=== PATIENT | female | born 1955 | race Caucasian/White ===

== ENCOUNTER 2021-12-11 03:28 | Inpatient (IN) | payer OTHER ==
[~2021-12-11] VITALS: Ht 158.8 cm; Wt 70.1 kg
[~2021-12-11 03:28] MED LIST: ARAVA20 MG PO; BACLOFEN 20MG T20 MG PO; CLARITIN10 MG PO; COLACE100 MG PO; DESYREL50 MG PO; DOXYCYCLINE MONOHYDRATE PO; HCTZ25 MG PO; IBUPROFEN800 MG PO; LINZESS145 MCG PO; LINZESS72 MCG PO; MOBIC7.5 MG PO; NEURONTIN300 MG PO; PLAQUENIL200 MG PO; PREDNISONE 5MG T5 MG PO; PRINIVIL20 MG PO; VALTREX500 MG PO; VICODIN 10/3251 EACH PO; VITAMIN D31000 UNI1 PO; VOLTAREN **OUT50 MG PO; WELLBUTRIN XL150 MG PO; ZOCOR10 MG PO
[2021-12-11 03:41] LABS: BASOPHIL 0.6 % (0-2); EOSINOPHIL 0.4 % (0-7); HCT 33.6 % (37.0-47.0); HGB 10.4 g/dl (12.5-16.0); LYMPHOCYTE 8.9 % (15-48); MCV 100.3 fL (78.0-100.0); MONOCYTE 4.9 % (0-12); MPV 8.8 fL (6.0-9.5); NEUTROPHIL 84.5 % (41-80); NRBC 0; PLT 425 K/uL (150-400); RBC 3.35 M/uL (4.20-5.40); RDW 15.1 % (11.5-14.0); WBC 9.7 K/uL (4.0-10.5)
[2021-12-11 04:04] LABS: ALBUMIN 3.4 g/dL (3.4-5.0); BILIRUBIN - TOTAL 0.3 mg/dL (0.2-1.0); BUN/CREAT RATIO (CALC) 18.5 RATIO; CREATININE 0.65 mg/dL (0.51-0.95); GLOBULIN (CALCULATION) 4.5 g/dL; TOTAL PROTEIN 7.9 g/dL (6.4-8.2)
[2021-12-11 04:08] LABS: INR 1.05 (0.9-1.2); PROTHROMBIN TIME 13.1 SECONDS (11.8-13.4); PTT 26.3 SECONDS (24.4-34.7)
[2021-12-11 04:09] LABS: LACTIC ACID 4.4 mmol/L (0.4-1.9)
[2021-12-11 04:42] LABS: CORONAVIRUS 2019 SARS-COV-2 NEGATIVE (NEGATIVE); INFLUENZA A NAA NEGATIVE (NEGATIVE)
[2021-12-11 06:54] LABS: BILIRUBIN NEGATIVE (NEGATIVE); BLOOD TRACE-INTACT Ery/uL (NEGATIVE); CLARITY CLEAR (CLEAR); COLOR YELLOW (YELLOW); GLUCOSE (U) NORMAL (NORMAL); LEUKOCYTES NEGATIVE Leu/uL (NEGATIVE); NITRITE NEGATIVE (NEGATIVE); PROTEIN TRACE (LOW) mg/dL (NEGATIVE); SPECIFIC GRAVITY >=1.030 (1.001-1.030); UROBILINOGEN 0.2 mg/dL (0.2-1.0)
[2021-12-11 07:03] LABS: BACTERIA TRACE; MUCOUS TRACE
[2021-12-11] MEDS ORDERED: PREDNISONE50 MG PO (11:29)
[2021-12-11] MEDS ORDERED: CEFDINIR300 MG PO (11:30)
[2021-12-11] MEDS ORDERED: AZITHROMYCIN250 MG PO (11:31)
[2021-12-11] MEDS ORDERED: ALENDRONATE SOD70 MG PO (11:33)
[2021-12-11] MEDS ORDERED: BENLYSTA200 MG/1 M IJ (11:35)
[2021-12-11] MEDS ORDERED: FOLIC ACID1 MG PO (11:36)
[2021-12-11] MEDS ORDERED: LASIX20 MG PO (11:36)
[2021-12-11] MEDS ORDERED: FEOSOL325 MG PO (11:36)
[2021-12-11] MEDS ORDERED: ADALAT CC30 MG PO (11:37)
[2021-12-11] MEDS ORDERED: COZAAR50 MG PO (11:38)
[2021-12-11] MEDS ORDERED: PROTONIX 40MG T40 MG PO (11:38)
[2021-12-11] MEDS ORDERED: TRAZODONE 100M100 MG PO (11:39)
[2021-12-11] MEDS ORDERED: LINEZOLID100 MG/5 M PO (11:42)
[2021-12-11] MEDS ORDERED: LINZESS145 MCG PO (11:43)
--- NOTE | 2021-12-11 15:20 | NUR ---
PT TO TRANSFER TO [facility] 12/11/21
== END 2021-12-11 17:03 | disposition other institution (70) | DRG 280 ==
LOC: FER 03:28 → FTCU 08:07
PROVIDERS: Internal Medicine; ADMIT Allergy & Immunology Allergy
DX: I21.4 Non-ST elevation (NSTEMI) myocardial infarction (principal); J18.9 Pneumonia, unspecified organism; J96.01 Acute respiratory failure with hypoxia; I11.0 Hypertensive heart disease with heart failure; I50.9 Heart failure, unspecified; Z20.822 Contact with and (suspected) exposure to COVID-19; I44.7 Left bundle-branch block, unspecified; M81.0 Age-related osteoporosis without current pathological fracture; D50.9 Iron deficiency anemia, unspecified; E78.5 Hyperlipidemia, unspecified; M32.9 Systemic lupus erythematosus, unspecified; Z96.651 Presence of right artificial knee joint; F41.9 Anxiety disorder, unspecified; E55.9 Vitamin D deficiency, unspecified; Z79.899 Other long term (current) drug therapy; Z87.891 Personal history of nicotine dependence
CPT/HCPCS: 36415; 36600; 71045; 80053; 81001; 82803; 83605; 83880; 84145; 84484; 85025; 85610; 85730; 87040; 93005; 94640; 94664; J1100; J1650; J2543; J3010; J7030; U0002

== ENCOUNTER 2022-03-20 05:20 | Inpatient (IN) | payer OTHER ==
[~2022-03-20] VITALS: Ht 157.5 cm; Wt 69.4 kg
[~2022-03-20 05:20] MED LIST changes: +ADALAT CC30 MG PO; +ALENDRONATE SOD70 MG PO; +AZITHROMYCIN250 MG PO; +BENLYSTA200 MG/1 M IJ; +CEFDINIR300 MG PO; +COZAAR50 MG PO; +FEOSOL325 MG PO; +FOLIC ACID1 MG PO; +LASIX20 MG PO; +LINEZOLID100 MG/5 M PO; +PREDNISONE50 MG PO; +PROTONIX 40MG T40 MG PO; +TRAZODONE 100M100 MG PO
[2022-03-20 06:09] LABS: BASOPHIL 1.6 % (0-2); EOSINOPHIL 3.5 % (0-7); HCT 30.4 % (37.0-47.0); HGB 8.4 g/dl (12.5-16.0); MCH 25.8 pg (25.0-31.0); MCHC 27.6 g/dL (32.0-36.0); MCV 93.5 fL (78.0-100.0); MONOCYTE 6.5 % (0-12); MPV 9.8 fL (6.0-9.5); NRBC 0.3; PLT 567 K/uL (150-400); RBC 3.25 M/uL (4.20-5.40); RDW 17.2 % (11.5-14.0); WBC 11.8 K/uL (4.0-10.5)
[2022-03-20 06:36] LABS: INR 1.11 (0.9-1.2); PTT 28.1 SECONDS (24.9-34.6)
[2022-03-20 06:37] LABS: LACTIC ACID 7.5 mmol/L (0.4-1.9)
[2022-03-20 06:47] LABS: ALBUMIN 3.2 g/dL (3.4-5.0); BILIRUBIN - TOTAL 0.3 mg/dL (0.2-1.0); BUN/CREAT RATIO (CALC) 19.2 RATIO; CREATININE 1.04 mg/dL (0.51-0.95); GLOBULIN (CALCULATION) 3.3 g/dL; POTASSIUM 4.1 mmol/L (3.5-5.1); TOTAL PROTEIN 6.5 g/dL (6.4-8.2)
[2022-03-20 07:03] LABS: CORONAVIRUS 2019 SARS-COV-2 NEGATIVE (NEGATIVE); INFLUENZA A NAA NEGATIVE (NEGATIVE)
[2022-03-20 07:29] LABS: BILIRUBIN NEGATIVE (NEGATIVE); BLOOD NEGATIVE Ery/uL (NEGATIVE); CLARITY CLEAR (CLEAR); COLOR YELLOW (YELLOW); GLUCOSE (U) 3+ mg/dL (NORMAL); LEUKOCYTES TRACE Leu/uL (NEGATIVE); NITRITE NEGATIVE (NEGATIVE); PROTEIN TRACE (LOW) mg/dL (NEGATIVE); SPECIFIC GRAVITY 1.025 (1.001-1.030); UROBILINOGEN 0.2 mg/dL (0.2-1.0)
[2022-03-20 07:42] LABS: BACTERIA TRACE
[2022-03-20] MEDS ORDERED: VENTOLIN HFA18 GM INH (10:51)
[2022-03-20] MEDS ORDERED: LIPITOR40 MG PO (10:52)
[2022-03-20] MEDS ORDERED: ALENDRONATE SOD70 MG PO (10:52)
[2022-03-20] MEDS ORDERED: BUPROPION XL150 MG PO (10:53)
[2022-03-20] MEDS ORDERED: COLACE100 MG PO (10:53)
[2022-03-20] MEDS ORDERED: PLAVIX75 MG PO (10:53)
[2022-03-20] MEDS ORDERED: BENLYSTA200 MG/11 SC (10:53)
[2022-03-20] MEDS ORDERED: ACCRUFER30 MG PO (10:54)
[2022-03-20] MEDS ORDERED: FLUTICASONE-SA1 EAC4 INH (10:55)
[2022-03-20] MEDS ORDERED: LASIX40 MG PO (10:56)
[2022-03-20] MEDS ORDERED: VICODIN 10/3251 EACH PO (10:57)
[2022-03-20] MEDS ORDERED: GABAPENTIN600 MG PO (10:57)
[2022-03-20] MEDS ORDERED: COZAAR50 MG PO (10:58)
[2022-03-20] MEDS ORDERED: LINZESS145 MCG PO (10:58)
[2022-03-20] MEDS ORDERED: PLAQUENIL200 MG PO (10:58)
[2022-03-20] MEDS ORDERED: TOPROL XL 25MG25 MG PO (10:59)
[2022-03-20] MEDS ORDERED: ADALAT CC60 MG PO (10:59)
[2022-03-20] MEDS ORDERED: NITROQUIK SL0.4 MG SL (11:00)
[2022-03-20] MEDS ORDERED: PROTONIX 40MG T40 MG PO (11:00)
[2022-03-20] MEDS ORDERED: ZOCOR10 MG PO (11:02)
[2022-03-20] MEDS ORDERED: KLOR-CON M 1010 MEQ PO (11:02)
[2022-03-20] MEDS ORDERED: CARAFATE1 GM PO (11:03)
[2022-03-20] MEDS ORDERED: BRILINTA90 MG PO (11:03)
[2022-03-20] MEDS ORDERED: TRAZODONE 100M100 MG PO (11:04)
[2022-03-20] MEDS ORDERED: VALACYCLOVIR500 MG PO (11:05)
[2022-03-20] MEDS ORDERED: K2 PLUS D3 TAB1 EACH PO (11:06)
[2022-03-21 04:08] LABS: BUN/CREAT RATIO (CALC) 27.9 RATIO; CREATININE 0.68 mg/dL (0.51-0.95)
[2022-03-21 04:13] LABS: BASOPHIL 0.3 % (0-2); EOSINOPHIL 0.2 % (0-7); HCT 21.2 % (37.0-47.0); LYMPHOCYTE 16.9 % (15-48); MCH 26.6 pg (25.0-31.0); MCHC 30.7 g/dL (32.0-36.0); MONOCYTE 8.5 % (0-12); MPV 9.4 fL (6.0-9.5); NEUTROPHIL 73.7 % (41-80); NRBC 0; PLT 387 K/uL (150-400); RBC 2.44 M/uL (4.20-5.40)
[2022-03-21 04:14] LABS: HGB 6.5 g/dl (12.5-16.0); MCV 86.9 fL (78.0-100.0)
[2022-03-21 04:57] LABS: BASOPHIL 0.4 % (0-2); EOSINOPHIL 0.3 % (0-7); HCT 22.2 % (37.0-47.0); LYMPHOCYTE 17.5 % (15-48); MCH 26.2 pg (25.0-31.0); MCHC 29.7 g/dL (32.0-36.0); MCV 88.1 fL (78.0-100.0); MONOCYTE 8.3 % (0-12); MPV 9.4 fL (6.0-9.5); NEUTROPHIL 73.1 % (41-80); NRBC 0; PLT 396 K/uL (150-400); RBC 2.52 M/uL (4.20-5.40); RDW 17.2 % (11.5-14.0); WBC 11.1 K/uL (4.0-10.5)
[2022-03-21 04:58] LABS: HGB 6.6 g/dl (12.5-16.0)
[2022-03-21 05:11] LABS: BUN/CREAT RATIO (CALC) 26.1 RATIO; CREATININE 0.69 mg/dL (0.51-0.95); MAGNESIUM 1.9 mg/dL (1.8-2.4)
[2022-03-21 05:12] LABS: POTASSIUM 2.9 mmol/L (3.5-5.1)
--- NOTE | 2022-03-21 14:02 | NUR ---
03/21/22 Ms. Anthony lives at home with her spouse. She has a cane, rw, s. chair, and 3in1. Will monitor for 02 and HH needs. Pt chose [facility] and [facility] if needed.
[2022-03-21 16:52] LABS: HCT 25.9 % (37.0-47.0)
[2022-03-21 17:05] LABS: BUN/CREAT RATIO (CALC) 24.1 RATIO; CREATININE 0.79 mg/dL (0.51-0.95); POTASSIUM 3.6 mmol/L (3.5-5.1)
[2022-03-22 07:00] LABS: BASOPHIL 1.1 % (0-2); EOSINOPHIL 1.6 % (0-7); HCT 27.7 % (37.0-47.0); HGB 8.3 g/dl (12.5-16.0); LYMPHOCYTE 22.4 % (15-48); MCH 26.6 pg (25.0-31.0); MCV 88.8 fL (78.0-100.0); MONOCYTE 8.5 % (0-12); MPV 9.8 fL (6.0-9.5); NEUTROPHIL 65.9 % (41-80); NRBC 0; PLT 419 K/uL (150-400); RBC 3.12 M/uL (4.20-5.40); RDW 16.9 % (11.5-14.0); WBC 10.3 K/uL (4.0-10.5)
[2022-03-22 07:55] LABS: CREATININE 0.64 mg/dL (0.51-0.95); POTASSIUM 3.4 mmol/L (3.5-5.1)
[2022-03-23 06:07] LABS: EOSINOPHIL 2.7 % (0-7); HCT 28.9 % (37.0-47.0); HGB 8.8 g/dl (12.5-16.0); LYMPHOCYTE 27.1 % (15-48); MCH 26.7 pg (25.0-31.0); MCHC 30.4 g/dL (32.0-36.0); MCV 87.6 fL (78.0-100.0); MONOCYTE 11.7 % (0-12); MPV 9.7 fL (6.0-9.5); NEUTROPHIL 57.1 % (41-80); NRBC 0; PLT 355 K/uL (150-400); RDW 16.2 % (11.5-14.0); WBC 8.2 K/uL (4.0-10.5)
[2022-03-23 06:21] LABS: CREATININE 0.61 mg/dL (0.51-0.95); MAGNESIUM 1.7 mg/dL (1.8-2.4); POTASSIUM 3.6 mmol/L (3.5-5.1)
[2022-03-23] MEDS ORDERED: LASIX40 MG PO (11:36)
[2022-03-23] MEDS ORDERED: KLOR-CON M2020 MEQ PO (11:36)
--- NOTE | 2022-03-23 13:42 | NUR ---
03/23/22 Ms. Anthony was discharged home. She was on room air and HH was not recommended.
== END 2022-03-23 13:15 | disposition home or self-care (01) | DRG 811 ==
LOC: FER 05:20 → FTCU 08:51
PROVIDERS: Internal Medicine; Nurse Practitioner; Nurse Practitioner Family; ADMIT Internal Medicine
PROC: 30233N1 Transfusion of Nonautologous Red Blood Cells into Peripheral Vein, Percutaneous Approach (ICD-10-PCS; principal; 2022-03-21)
PROC: 30233N1 Transfusion of Nonautologous Red Blood Cells into Peripheral Vein, Percutaneous Approach (ICD-10-PCS; 2022-03-22)
DX: D50.9 Iron deficiency anemia, unspecified (principal); I50.33 Acute on chronic diastolic (congestive) heart failure; J96.01 Acute respiratory failure with hypoxia; I11.0 Hypertensive heart disease with heart failure; Z20.822 Contact with and (suspected) exposure to COVID-19; R77.8 Other specified abnormalities of plasma proteins; I50.83 High output heart failure; I25.10 Atherosclerotic heart disease of native coronary artery without angina pectoris; J44.9 Chronic obstructive pulmonary disease, unspecified; E78.5 Hyperlipidemia, unspecified; Z96.651 Presence of right artificial knee joint; F41.9 Anxiety disorder, unspecified; G47.30 Sleep apnea, unspecified; M81.0 Age-related osteoporosis without current pathological fracture; G47.00 Insomnia, unspecified; K21.9 Gastro-esophageal reflux disease without esophagitis; I27.20 Pulmonary hypertension, unspecified; I35.1 Nonrheumatic aortic (valve) insufficiency; E87.6 Hypokalemia; Z98.61 Coronary angioplasty status; Z87.891 Personal history of nicotine dependence; I25.2 Old myocardial infarction; Z83.6 Family history of other diseases of the respiratory system
CPT/HCPCS: 36415; 36430; 36600; 71045; 71250; 80048; 80053; 81001; 82803; 83605; 83735; 83880; 84145; 84484; 85014; 85018; 85025; 85610; 85730; 86850; 86900; 86901; 86922; 87040; 87088; 93005; 94640; 94762; J1100; J1170; J1650; J1940; J2405; J2543; J3475; J7030; P9016; U0002

== ENCOUNTER 2022-04-08 21:33 | Emergency (ER) | payer OTHER ==
[~2022-04-08 21:33] MED LIST changes: +ACCRUFER30 MG PO; +ADALAT CC60 MG PO; +BENLYSTA200 MG/11 SC; +BRILINTA90 MG PO; +BUPROPION XL150 MG PO; +CARAFATE1 GM PO; +FLUTICASONE-SA1 EAC4 INH; +GABAPENTIN600 MG PO; +K2 PLUS D3 TAB1 EACH PO; +KLOR-CON M 1010 MEQ PO; +KLOR-CON M2020 MEQ PO; +LASIX40 MG PO; +LIPITOR40 MG PO; +NITROQUIK SL0.4 MG SL; +PLAVIX75 MG PO; +TOPROL XL 25MG25 MG PO; +VALACYCLOVIR500 MG PO; +VENTOLIN HFA18 GM INH
== END 2022-04-08 21:39 | disposition expired ==
LOC: FER 21:33
DX: J96.01 Acute respiratory failure with hypoxia (principal); I25.2 Old myocardial infarction; I50.9 Heart failure, unspecified; Z88.8 Allergy status to other drugs, medicaments and biological substances